=== PATIENT | male | born 2000 | race Hispanic/Latino ===

== ENCOUNTER 2022-03-10 15:20 | Emergency (ER) | payer OTHER ==
[~2022-03-10] VITALS: Ht 180.3 cm; Wt 100.0 kg
[2022-03-10] VITALS (12 sets, daily range): BP systolic 122–160; BP diastolic 70–109
== END 2022-03-10 18:30 | disposition home or self-care (01) | DRG 563 ==
LOC: ED 15:20
DX: S53.115A Anterior dislocation of left ulnohumeral joint, initial encounter (principal); W31.9XXA Contact with unspecified machinery, initial encounter